=== PATIENT | female | born 1975 | race Caucasian/White ===

== ENCOUNTER → 2018-05-26 | Outpatient (CLI) | payer OTHER | LOC: MC.RAD 10:40 | DX: Z12.31 Encounter for screening mammogram for malignant neoplasm of breast (principal) ==

== ENCOUNTER → 2019-06-26 | Outpatient (CLI) | payer OTHER | LOC: MC.RAD 12:53 | DX: Z12.31 Encounter for screening mammogram for malignant neoplasm of breast (principal) ==

== ENCOUNTER → 2020-07-26 | Outpatient (CLI) | payer OTHER | LOC: MC.RAD 15:42 | DX: Z12.31 Encounter for screening mammogram for malignant neoplasm of breast (principal) ==

== ENCOUNTER 2022-07-03 10:22 | Emergency (ER) | payer OTHER ==
[~2022-07-03] VITALS: Ht 162.6 cm; Wt 65.9 kg
[2022-07-03 10:35] VITALS: TEMP 98.1
[2022-07-03] MEDS ORDERED: DOXYCYCLINE 50M50 MG PO (10:39)
[2022-07-03] MEDS ORDERED: PRISTIQ 50 MG T50 MG PO (10:39)
[2022-07-03 12:07] LABS: BASO # 0.1 K/mm3 (0.0-0.2); BASO % 0.8 % (0.0-2.0); EOS # 0.1 K/mm3 (0.0-0.7); EOS % 0.7 % (0.0-4.0); GRAN # 9.9 K/mm3 (1.4-6.5); GRAN % 83.2 % (42.2-75.2); HEMATOCRIT 43.2 % (37.0-47.0); HEMOGLOBIN 13.9 g/dl (12.5-16.0); LYMPH # 1.2 K/mm3 (1.2-3.4); LYMPH % 10.4 % (20.0-51.0); MEAN CELL VOLUME 80 fl (80.0-100.0); MEAN CORPUSCULAR HEMOGLOBIN 26 pg (27-31); MEAN CORPUSCULAR HGB CONC 32 g/dl (33.0-37.0); MEAN PLATELET VOLUME 9.6 fl (7.4-10.4); MONO # 0.5 K/mm3 (0.1-0.6); MONO % 4.5 % (1.7-9.3); PLATELET COUNT 293 K/mm3 (130-400); RED BLOOD COUNT 5.41 M/mm3 (4.10-5.30); REDCELL DISTRIBUTION WIDTH-CV 19.8 % (11.5-14.5)
[2022-07-03 12:21] LABS: ALANINE AMINOTRANSFERASE 19 U/L (0-55); ALBUMIN 4.1 gm/dL (3.5-5.0); ALKALINE PHOSPHATASE 53 U/L (40-150); ANION GAP 9 mmol/L (7-16); AST,SGOT 18 U/L (5-34); BILIRUBIN,TOTAL 0.2 mg/dL (0.2-1.2); BLOOD UREA NITROGEN 14 mg/dL (7-19); CALCIUM 9.1 mg/dL (8.4-10.2); CARBON DIOXIDE 23 mmol/L (22-29); CHLORIDE 104 mmol/L (98-107); CREATININE, serum 0.79 mg/dL (0.57-1.11); GLUCOSE 109 mg/dL (70-99); POTASSIUM 3.9 mmol/L (3.5-4.5); SODIUM 136 mmol/L (136-145); TOTAL PROTEIN 7.5 gm/dL (6.2-8.1)
[2022-07-03 12:27] LABS: TROPONIN-I < 0.010 ng/mL (0.00-0.033)
[2022-07-03 15:56] VITALS: BP 127/82; PULSE 94
== END 2022-07-03 15:56 | disposition home or self-care (01) ==
LOC: COL.ER 10:22
PROVIDERS: Personal Emergency Response Attendant
DX: R55 Syncope and collapse (principal); Z20.822 Contact with and (suspected) exposure to COVID-19
CPT/HCPCS: J2405; J7030

== ENCOUNTER 2022-11-02 08:28 | Day surgery (SDC) | payer OTHER ==
[~2022-11-02] VITALS: Ht 162.6 cm; Wt 65.9 kg
[~2022-11-02 08:28] MED LIST: DOXYCYCLINE 50M50 MG PO; PRISTIQ 50 MG T50 MG PO
[2022-11-02] MEDS ORDERED: IRON TABLETS325 MG PO (09:11)
[2022-11-02] MEDS ORDERED: B-121000 MCG PO (09:12)
[2022-11-02] MEDS ORDERED: OCUVITE1 TA1 PO (09:12)
[2022-11-02 09:13] VITALS: BP 106/74; PULSE 89; TEMP 97.7
[2022-11-02 10:15] VITALS: BP 111/71; PULSE 85; TEMP 97.7
--- NOTE | 2022-11-02 10:16 | NUR ---
1016 PATIENT RETURNS TO ROOM 4 VIA CART. PATIENT IS ALERT AND ORIENTED. PATIENT SPOUSE AND SON IN ROOM. PATIENT AMBULATES TO RECLINER WITH THE ASSISTANCE OF 2 NURSES. RESPIRATIONS EVEN AND UNLABORED. VITAL SIGNS OBTAINED. PATIENT REQUESTED A MUFFIN AND WATER, NO DIFFICULTIES SWALLOWING. 1016 DOCTOR IN TO SPEAK WITH PATIENT. 1025 DISCHARGE INSTRUCTIONS REVIEWED WITH PATIENT AND PATIENT FAMILY. BOTH VERBALIZED UNDERSTANDING. 1030 DISCONTINUED IV FROM RIGHT HAND WITH NO DIFFICULTIES. 1040 PATIENT DISCHARGES FROM UNIT VIA WHEELCHAIR IN STABLE CONDITION
[2022-11-02 10:30] VITALS: BP 116/82; PULSE 79
[2022-11-02 10:40] VITALS: BP 117/83; PULSE 80
== END 2022-11-02 10:40 | disposition home or self-care (01) ==
LOC: SDCO 08:28
DX: Z12.11 Encounter for screening for malignant neoplasm of colon (principal); D12.4 Benign neoplasm of descending colon; K62.89 Other specified diseases of anus and rectum
CPT/HCPCS: J2704; J7120